=== PATIENT | male | born 1985 | race Caucasian/White ===

== ENCOUNTER 2020-12-21 09:48 | Emergency (ER) | payer OTHER | END 2020-12-21 14:10 | disposition home or self-care (01) | LOC: ER1 09:48 | DX: L02.413 Cutaneous abscess of right upper limb (principal); F17.200 Nicotine dependence, unspecified, uncomplicated; Z90.89 Acquired absence of other organs | CPT/HCPCS: 10060; 87070; 87077; 87186; 87205; 99283 ==